=== PATIENT | female | born 1995 | race Caucasian/White ===

== ENCOUNTER 2024-04-25 07:29 | Inpatient (IN) | payer OTHER, SELFPAY ==
[2024-04-25] VITALS (68 sets, daily range): BP systolic 97–134; BP diastolic 50–86; PULSE 53–112; RESP 16–18; TEMP 36.3–36.6; O2SAT 82–100; BMI 33.4
[2024-04-25] MEDS: 0.9% Normal Saline Single 100 ML IV.SOLN. INTRA-UTER (08:25)
--- NOTE | 2024-04-25 08:42 | PCM.HP.OB ---
HPI - General General Date of Admission: 04/25/24 HPI Narrative ELIEZER THAPA, is a 28 F who presents for elective induction of labor at 39w4d. Denies any headache, visual changes, chest pain, shortness of breath, vaginal bleeding, or leakage of fluid. Maternal Data Information ANA CRISTINA Calculator Estimated Delivery Date Method Current WG Current Estimate 04/28/24 Manual 39w 4d PFSH PFSH Allergy/AdvReac Type Severity Reaction Status Date / Time Sulfa (Sulfonamide Allergy Severe Hives Verified 04/25/24 08:50 Antibiotics) NST FHR Rate Baby A Baseline: 135 Variability:: Moderate Accelerations:: 15 x 15 Decelerations:: None FHR Category:: Category I Uterine Activity:: Irregular, mild ROS Constitutional Constitutional: Reports systems reviewed and no addt'l complaints, except as documented; Denies headache(s) Eyes Eyes: Denies acute decrease in peripheral vision, blurry vision or change in vision ENT HEENT: Reports systems reviewed and no addt'l complaints, except as documented Cardiovascular Cardiovascular: Denies chest pain or dizziness Respiratory/Chest Respiratory/Chest: Denies cough, dyspnea, dyspnea on exertion, shortness of breath at rest or shortness of breath with exertion Gastrointestinal Gastrointestinal: Denies abdominal pain, diarrhea, nausea or vomiting Genitourinary Genitourinary: Denies abdominal discomfort Musculoskeletal Musculoskeletal: Denies limited range of motion Integumentary Integumentary: Reports systems reviewed and no addt'l complaints, except as documented Neurologic Neurologic: Reports systems reviewed and no addt'l complaints, except as documented Psychiatric Psychiatric: Reports systems reviewed and no addt'l complaints, except as documented Endocrine Endocrinology: Reports systems reviewed and no addt'l complaints, except as documented Hematologic/Lymphatic Hematologic/Lymphatic: Reports systems reviewed and no addt'l complaints, except as documented Allergic/Immunologic Allergic/Immunologic: Reports systems reviewed and no addt'l complaints, except as documented Vital Signs Vital Signs Vital Signs: 04/25/24 07:17 04/25/24 07:17 Pulse Rate 112 H Blood Pressure 122/75 H BP Systolic 122 BP Diastolic 75 Weight Weight: 220 lb Body Mass Index (BMI) 33.4 Physical Exam Const alert and oriented x3 General Appearance: cooperative Orientation / Consciousness: awake, oriented to person, oriented to place and oriented to time Exam Limitations: no limitations HEENT normocephalic Head and Scalp: normal to inspection, normocephalic and atraumatic Face and Sinus: normal facial exam Eyes General Eye: normal appearance of both eyes Neck full ROM Chest Chest: symmetrical chest wall rise Resp normal respiratory effort and normal air movement Auscultation: clear to auscultation bilaterally Cardio regular rate, regular rhythm, S1 normal heart sound, S2 normal heart sound, no murmurs, no rub, no gallops and no clicks GI normal to inspection, nondistended, normoactive bowel sounds and non-tender appearance of the vagina normal Bladder / Kidney Exam: no CVA tenderness Manual OB Exam: estimated gestational size appropriate, presentation cephalic, dilated 1, effaced 50, station -2 and other recinos catheter inserted through cervical os and 30ml NS instilled, tolerated well. Back/Spine normal ROM Extremity normal to inspection and full ROM Skin no rashes or lesions noted Neuro oriented x3, CN's II-XII intact bilaterally and moves all extremities Sensorium / Orientation: awake, alert and oriented to person Motor Exam: clonus absent Deep Tendon Reflexes: Rt Patellar (L4): 2+ and Lt Patellar (L4): 2+ Labs Labs Labs: Blood Type Pending Antibody Screen Pending Hct Pending Hgb Pending Syphilis Total Ab Pending RPR negative GC/CT negative 1hr GCT negative HbsAG negative HepC negative HIV negative Rubella Immune A Positive Positive GBS Assessment & Plan (1) Elective induction of labor planned: (2) 39 weeks gestation of : (3) History of shoulder dystocia: (4) PTSD (post-traumatic stress disorder): (5) History of third degree perineal laceration: (6) Late care: (7) History of depression: (8) Positive GBS test: PLAN: Plan 1) Admit to labor and delivery 2) Routine labs 3) Continuous EFM 4) Pain management upon request 5) recinos with pitocin for induction of labor. Reviewed risks, benefits and alternatives and would like to proceed. 6) collaborative physician and notified of patient status, above assessment, and plan.
[2024-04-25 08:48] LABS: Absolute Lymphocyte Count 1.92 X10^3/uL (0.83-4.51); Absolute Neutrophil Count 5.4 X10^3/uL (2.0-7.7); Basophil# 0.01 X10^3/uL; Basophil% 0.1 % (0-1); Eosinophil# 0.31 X10^3/uL; Eosinophils% 3.7 % (0-5); Hematocrit 37.7 % (37-47); Hemoglobin 12.8 g/dL (12.0-15.0); Lymphocyte # 1.92 X10^3/ul (0.83-4.51); Lymphocyte % 22.6 % (19-41); Mean Corpuscular Hgb 30.5 pg (27.0-32.0); Mean Platelet Vol. 11.5 fl (6.2-12.0); Monocyte# 0.81 X10^3/uL; Monocyte% 9.6 % (0-10); NRBC Flagged by Analyzer 0 % (0-5); Neutrophil # 5.39 X10^3/uL (2.7-7.7); Neutrophil % 63.5 % (47-70); Platelet Count 234 K/mm3 (150-450); RBC Distribution Width CV 12.6 % (11.6-14.6); RBC Distribution Width SD 41.2 fl (35.1-43.9); Red Blood Count 4.19 M/mm3 (4.2-5.4); White Blood Count 8.5 K/mm3 (4.4-11.0)
[2024-04-25] MEDS: Lactated Ringers 1,000 ML 50 ML IV (09:06)
[2024-04-25] MEDS: Oxytocin 15 Units/NS 250ml 15 UNITS/250 ML IV.SOLN 2 UNITS IV (09:12)
[2024-04-25] MEDS: Penicillin G Pot 5,000,000 UNITS in 0.9% Normal Saline (100mL MB+) 100 ML 150 UNITS IV (09:31)
[2024-04-25 10:02] LABS: Syphilis Antibodies Nonreactive (Nonreactive)
[2024-04-25] MEDS: LACTATED RINGERS 500 ML 999 ML IV (11:14)
[2024-04-25] MEDS: fentaNYL-bupivacaine (epidural) 100 ML BAG EPIDURAL ×2 (11:54→16:10)
[2024-04-25] MEDS: Ondansetron 4 MG/2 ML Vial IV (12:52)
[2024-04-25] MEDS: Penicillin G 3,000,000 Units 50 ML 100 UNITS IV ×2 (13:29→18:05)
[2024-04-25] MEDS: Lactated Ringers 1,000 ML 200 ML IV (17:31)
--- NOTE | 2024-04-25 19:25 | OB.VAGDELI_ITS ---
Assessment & Plan (1) Vaginal delivery: (2) Lactating mother: (3) PTSD (post-traumatic stress disorder): (4) History of depression: Maternal Data Information ANA CRISTINA Calculator Estimated Delivery Date Method Current WG Current Estimate 04/28/24 Manual 39w 4d Vaginal Delivery Maternal Presentation Maternal Presentation: Elective Induction Type of Induction: Pitocin and [place] [facility] Reason for Induction: Other (elective) Vaginal Delivery Information Procedure Performed: Spontaneous Vaginal Delivery Surgeon/Practitioner: Kim Bowser Date of Procedure: 04/25/24 Pre-Procedure Diagnosis: Elective Induction of labor Post-Procedure Diagnosis: Type of anesthesia: Epidural Estimated Blood Loss: 300 ml Time of Delivery: 19:16 Findings Description of procedure: Progressed to complete with urge to push. Epidural for pain management. of viable female infant over intact perineum . APGARS 9,9 respectively. Infant head delivered, CANx1, delivered through with body immediately forthcoming. Placed on maternal abdomen, strong cry. Mouth and nares suctioned for secretions. Pitocin started for active 3rd stage management. Cord doubly clamped and cut by patient after pulsations ceased, delayed cord clamping. Placenta delivered intact via bailey, 3 vessel cord intact. Perineum inspected and revealed intact. Fundus firm and hemostasis achieved. EBL 300ml. Mom and baby stable, planning to breastfeed. Family bonding well. notified of delivery. Presentation: Vertex Amniotic Membrane Rupture Type: Spontaneous Amniotic Fluid Description: Clear Placental Delivery Description: Spontaneous Placenta Disposition: [facility] Specimen collected: No Cord Vessel Description: 3 Vessels Cord Entanglement: Around neck x 1, loose Nuchal Cord Compression: Without compression A Gender: Female (1 minute): 9 (5 minute): 9 Delayed Cord Clamping: Yes Specialties Operator provider relations representative: No Post Vaginal Deli Medications given after delivery: IV Pitocin and IM Pitocin Episiotomy Description: None Laceration: None Complication Complications: No
[2024-04-25] MEDS: Oxytocin 15 Units/NS 250ml 15 UNITS/250 ML IV.SOLN 83 UNITS IV (19:55)
[2024-04-26 04:00] VITALS: BP 119/67; PULSE 84; RESP 16; TEMP 36.4; O2SAT 98
[2024-04-26] MEDS: Acetaminophen 500 MG Tablet 1000 MG PO (04:10)
[2024-04-26 06:09] LABS: Absolute Lymphocyte Count 2.54 X10^3/uL (0.83-4.51); Absolute Neutrophil Count 10.4 X10^3/uL (2.0-7.7); Basophil# 0.04 X10^3/uL; Basophil% 0.3 % (0-1); Eosinophil# 0.26 X10^3/uL; Eosinophils% 1.8 % (0-5); Hematocrit 36.5 % (37-47); Hemoglobin 12.5 g/dL (12.0-15.0); Lymphocyte # 2.54 X10^3/ul (0.83-4.51); Lymphocyte % 17.6 % (19-41); Mean Corp Hgb Conc 34.2 g/dL (32-36); Mean Corpuscular Volume 90.6 fL (81-99); Monocyte# 1.08 X10^3/uL; Monocyte% 7.5 % (0-10); NRBC Flagged by Analyzer 0 % (0-5); Platelet Count 212 K/mm3 (150-450); RBC Distribution Width CV 12.5 % (11.6-14.6); RBC Distribution Width SD 41.5 fl (35.1-43.9); Red Blood Count 4.03 M/mm3 (4.2-5.4); White Blood Count 14.4 K/mm3 (4.4-11.0)
[2024-04-26 08:45] VITALS: BP 117/65; PULSE 72; RESP 16; TEMP 36.6
[2024-04-26] MEDS: Ibuprofen 600 MG Tablet PO ×2 (08:50→15:52)
--- NOTE | 2024-04-26 09:02 | PCM.PN.OB ---
Subjective Subjective Doing well. Ambulating and voiding without difficulty. Mild lochia. Breast feeding. Objective Data Objective Data Vital Signs: Vital Signs Temp Pulse Resp BP Pulse Ox O2 Del Method 97.5 F L 84 16 119/67 98 Room Air 04/26/24 04:00 04/26/24 04:00 04/26/24 04:00 04/26/24 04:00 04/26/24 04:00 04/26/24 04:00 Oxygen Delivery Method Room Air Weight: 99.79 kg Body Mass Index (BMI) 33.4 Intake & Output: Intake and Output for Last 24 Hours 04/25/24 04/25/24 04/26/24 00:59 23:59 23:59 Intake Total 2451.67 / 2451.67 Output Total 700 / 700 500 / 500 Balance 1751.67 / 1751.67 -500 / -500 Lab / Micro Data 04/26/24 06:00 Labs: Laboratory Results - last 24 hr 04/25/24 08:00: Syphilis Total Ab Nonreactive, Blood Type A POSITIVE, Antibody Screen NEGATIVE 04/26/24 06:00: WBC 14.4 H, RBC 4.03 L, Hgb 12.5, Hct 36.5 L, MCV 90.6, MCH 31.0, MCHC 34.2, RDW Std Deviation 41.5, RDW Coeff of Sadaf 12.5, Plt Count 212, MPV 11.0, Immature Gran % (Auto) 0.800, Neut % (Auto) 72.0 H, Lymph % (Auto) 17.6 L, [facility] % (Auto) 7.5, Eos % (Auto) 1.8, Baso % (Auto) 0.3, Absolute Neuts (auto) 10.4 H, Absolute Lymphs (auto) 2.54, Nucleated RBC % 0 ROS Constitutional Constitutional: Denies headache(s) Cardiovascular Cardiovascular: Denies chest pain or dyspnea Gastrointestinal Gastrointestinal: Denies nausea or vomiting Genitourinary Genitourinary: Denies dysuria Physical Exam Const alert, oriented x3 and no apparent distress General Appearance: cooperative and comfortable Eyes PERRL and EOMs intact bilaterally Resp normal respiratory effort GI soft to palpation and non-tender Uterus Palpation: uterus fundus firm ( below umbilicus) Extremity normal to inspection and full ROM Neuro oriented x3 and CN's II-XII intact bilaterally Psych mental status grossly normal Assessment & Plan (1) Vaginal delivery: (2) Lactating mother: PLAN: Plan Possible discharge tonight
[2024-04-26] MEDS: FLU VACC 2024-25(6MOS UP)/PF 45 MCG/0.5 ML SYRINGE IM (10:40)
[2024-04-26] MEDS: Senna/Docusate Sodium 1 Tablet PO (10:43)
[2024-04-26 12:00] VITALS: BP 101/53; PULSE 66; RESP 16; TEMP 36.8; O2SAT 97
--- NOTE | 2024-04-26 13:23 | CASEMGMT ---
Social Work Assessment Labor and Delivery Unit Patient Address: [facility] [place] [address] Phone number: [phone] Date of Referral: 04/25/24 Time of Referral:? 852 Referred By: Kim Bowser Date of Intervention: ??04/26/24 Time of Intervention:? 914 Reason for Referral:? mental health Sw completed chart review and acknowledges social work consult due to maternal mental health. Sw presented to bedside and introduced self to mother of baby (CONSTANTIN- Matthew) and father of baby (FOB- Kishor). Sw explained reason for sw involvement and completed psychosocial assessment. History obtained from: medical records, MOB and FOB. Household composition: Currently residing the family home is CONSTANTIN, GISELA and their children. Parents have two older children: Dorie (4) and Natan (2), and baby who will be included in residence when ready for discharge. Parents deny and problems or concerns with housing, stating it is safe and secure. Patient's parent/guardian status:? ?MOB states that she and GISELA have been together for 6 years after they met online. Bailey baby is third baby for both parents. MOB states that baby was unexpected, but accepted. No concerns reported of domestic violence or intimate partner violence. Medical History: ?CONSTANTIN is 28 year old female who is 5, para 2- now 3 following labor and delivery of . CONSTANTIN received routine care during with [facility]. CONSTANTIN delivered her first baby in [place] and her second in [place]. CONSTANTIN presented to hospital for induction of labor and delivered baby on 04/25/24 at 39 weeks. Baby girl, named Any Yee, was born weighing 6lb 8oz with apgars of 9 and9 at one and five minutes of life, respectfully. CONSTANTIN states that she is breast feeding and [facility] Educational Status:? Both parents obtained their Bachelor's degree. No issues with reading, learning or comprehension. Financial Status: Both parents are gainfully employed outside of the home. 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 CONSTANTIN works in HR and is able to take three months off of work. Supplies: Parents obtained all necessary baby supplies, including: car seat, safe sleep space, clothes, diapers and wipes. Childcare/Caregiver(s):? MOB states that she will be the primary caregiver to baby along with GISELA when he is not at work. MOB states that when both parents are at work their children go to daycare. Transportation:?? Both parents have their drivers license and reliable means of transportation, no barriers at this time. Programs/Agencies Involved: ??Parents are not connected to any community resources that assist them financially. ? Children Services/Legal Issues:??? No history of children services involvement, no issues or concerns warranting referral to be made at this time. Behavioral Health Issues: ??Mental Health History:??GISELA denies mental health history. CONSTANTIN reports that she has a history of anxiety/ PTSD. MOB states that her PTSD was diagnosed when she started to attend counseling to process her traumatic childhood. MOB states that she thinks she may have experienced some depression after her first baby was born. MOB states at that time they did not have a lot of support and it was a difficult transition to parenthood. CONSTANTIN denies being connected to any mental health resources at this time, and is not prescribed any pharmacological medications to help her manage her mental health symptoms. MOB states that her mental health is managed by using healthy and safe coping skills. ? Substance Use History: Parents deny substance use prior to and during . ?? Family History:?CONSTANTIN reports that her mom has history of substance use including narcotics and other illicit substances. CONSTANTIN reports that her mom still lives in [place] and she does not have an ongoing relationship with her. MOB states that she recognizes her genetic disposition, and that is why she does not do any type of substance, because she does not want to ruin her children's lives like her mom impacted hers. ? Drug Screens: No drug screens observed in chart review. Family/Social Stressors:? Parents state that at this time they are struggling with their finances. Parents state that although they both are employed and are able to pay their bills, and on time, they do not have any additional finances for fun things. MOB states that she is hoping to get a promotion at work, that will help cover the increased cost childcare when she returns to work and their baby has to go to daycare. MOB states that they are working with the daycare provider to apply for some grants. Support Systems: MOB identifies that FOB and her dad are her biggest supports. MOB states that her dad is watching their older two children while she and FOB are at hospital for labor and delivery of . Depression/Shaken Baby/Safe Sleeping: Sw educated parents on signs and symptoms of baby blues and depression and anxiety. MOB states that she knows what to look out for, and states that she is happy to no longer be . FOB repots that if MOB were to struggle with symptoms during this time, he may or may not recognize it and states that he would not know how to help her. Sw provided education and encouraged parents to talk about this. MOB and FOB receptive to do so. Sw educated parents on shaken baby prevention and ABCs of safe sleep. Parents express understanding. ASSESSMENT:? MOB and baby admitted following labor and delivery. MOB with mental health history due to traumatic childhood with a parent whom struggled with addiction, including illicit substances. MOB states that she does not use any type of substance or drink due to this fact. Both parents present and engaging throughout completion of assessment. MOB observed sitting comfortably in bed and holding baby lovingly and appropriately. MOB states that although baby was unexpected, she was accepted and she has a heaton/ connection with baby. Education provided regarding baby blues and symptoms for MOB to be mindful of going into this period. Information and conversation to FOB on how to be supportive to MOB as well. Parents have natural supports and have obtained all necessary baby supplies. PLAN:?? No other services requested or indicated. MOB and baby to be discharged when medically ready. Parents were provided literature regarding: signs and symptoms of baby blues and mood and anxiety disorders, Help Me Grow, shaken baby prevention, ABCs of safe sleep and a list of county resources that are available for them should any needs present themselves. oJsue Aldrich, PIN MACHINE TENDER, MOVEMENT THERAPIST
[2024-04-26 16:00] VITALS: BP 124/60; PULSE 62; RESP 16; TEMP 36.5; O2SAT 97
[2024-04-26 19:51] VITALS: BP 127/79; PULSE 60; RESP 16; TEMP 36.4; O2SAT 97
--- NOTE | 2024-04-26 19:52 | PCM.DC.SUM ---
Providers Date of Admission: 04/25/24 Date of Discharge: 04/26/24 Primary Care Physician: Inna Primary Care Phys Reason For Visit: VAG Diagnosis Discharge Diagnosis (1) Vaginal delivery: Status: Acute Code(s): O80 - Encounter for full-term uncomplicated delivery (2) Lactating mother: Status: Acute Code(s): Z39.1 - Encounter for care and examination of lactating mother Plan Possible discharge tonight Hospital Course Operations None Procedures None Summary of Care Provided Minutes Spent on Discharge: 20 Hospital Course: IOL with . No complications. Breast feeding. Physical Exam Const alert and no apparent distress Narrative: Fundus firm, below umbilicus. Weight / BMI Weight Weight: 99.79 kg Body Mass Index (BMI) 33.4 ABG / Lab / Microbiology Data 04/26/24 06:00 Laboratory: Laboratory Results - last 24 hr 04/26/24 06:00: WBC 14.4 H, RBC 4.03 L, Hgb 12.5, Hct 36.5 L, MCV 90.6, MCH 31.0, MCHC 34.2, RDW Std Deviation 41.5, RDW Coeff of Sadaf 12.5, Plt Count 212, MPV 11.0, Immature Gran % (Auto) 0.800, Neut % (Auto) 72.0 H, Lymph % (Auto) 17.6 L, [place] % (Auto) 7.5, Eos % (Auto) 1.8, Baso % (Auto) 0.3, Absolute Neuts (auto) 10.4 H, Absolute Lymphs (auto) 2.54, Nucleated RBC % 0 D/C Instructions May resume sexual activity in: 6 weeks DC O2, CPAP, BIPAP Needs Home O2 Discharge instructions: No Please Follow Up With: Shannan Webb MD When: Follow up with our office in 1-2 and 6 weeks or as needed. [phone] Meaningful Use Info Meaningful Use Meaningful Use Diagnoses (Choose all that apply): None applicable Ischemic Stroke Statin Dosing Therapy Reference: STATIN DOSE THERAPY REFERENCE: * Patients > 75 years receive moderate or high dose statin therapy. * Patients 75 years or YOUNGER should receive HIGH intensity statin dose unless contraindicated. You will be required to document reason for non-treatment if statin daily dose does not meet guidelines. HIGH DOSE STATIN THERAPY DAILY Atorvastatin > than or = to 40 mg Rosuvastatin > than or = to 20 mg Amlodipine + Atorvastatin > than or = to 2.5/40 mg Ezetimibe + Simvastatin 10/80 mg Simvastatin 80mg Discharge Plan Admission Admit Date/Time: 04/25/24 07:29 Primary Reason for Your Visit: labor Attending Provider: Kim Bowser Primary Care Provider: Care Physician,No Primary Discharge Orders/Prescriptions Referrals / Follow Up: Care Physician,No Primary [Primary Care Provider] - Disposition Disposition (needs filled in before D/C Order can be placed): Home, Self Care
== END 2024-04-26 20:30 | disposition home or self-care (01) | DRG 807 ==
PROVIDERS: Obstetrics & Gynecology; Admitting Provider Advanced Practice Midwife; Referring Provider Advanced Practice Midwife; Visit Provider Advanced Practice Midwife
DX: O98.82 Other maternal infectious and parasitic diseases complicating childbirth (principal); Z37.0 Single live birth; O99.344 Other mental disorders complicating childbirth; B95.1 Streptococcus, group B, as the cause of diseases classified elsewhere; F43.10 Post-traumatic stress disorder, unspecified; O69.81X0 Labor and delivery complicated by cord around neck, without compression, not applicable or unspecified; Z3A.39 39 weeks gestation of pregnancy; Z87.59 Personal history of other complications of pregnancy, childbirth and the puerperium; Z86.59 Personal history of other mental and behavioral disorders
CPT/HCPCS: 59025; 59050; 85025; 86780; 86850; 86900; 86901; 90656; 99221; G0378; J2405